=== PATIENT | female | born 1985 | race Caucasian/White ===

== ENCOUNTER 2024-01-13 07:16 | Emergency (ER) | payer OTHER ==
[2024-01-13] MEDS ORDERED: Ketorolac Tromethamine 30 MG (1 mL) VIAL ONE (07:48)
[2024-01-13] MEDS ORDERED: Ondansetron PF 4 MG/2 ML Vial ONE (07:48)
[2024-01-13 07:52] LABS: #Basophils 0.04 10x3/uL (0.0-0.2); %Basophils 0.3 % (0.0-1.0); %Eosinophils 0.7 % (0.0-10.0); %Lymphocytes 18.4 % (21.0-51.0); %Monocytes 6.6 % (0.0-10.0); %Neutrophils 73.7 % (42.0-75.0); Hematocrit 41.4 % (36.0-47.0); Hemoglobin 14.2 g/dL (12.0-16.0); Mean Corpuscular HGB CONC 34.3 g/dL (32.0-36.0); Mean Corpuscular Hemoglobin 29.5 pg (27.0-31.0); Mean Corpuscular Volume 85.9 fL (78.0-98.0); Platelet Count 331 10x3/uL (130-400); RBC Distribution Width 13.1 % (11.5-14.5); Red Blood Cell (RBC) Count 4.82 mill/uL (4.20-5.40)
[2024-01-13 07:57] LABS: Bilirubin Negative (Negative); Blood, Urine Small (Negative); Glucose, Urine (Dipstick) Negative (Negative); Ketone, Urine Negative (Negative); Leukocyte Negative (Negative); Nitrite Negative (Negative); Protein, Urine (Dipstick) Negative (Neg-Trace); Urobilinogen 0.2 mg/dL (Less than 2)
[2024-01-13 08:03] LABS: Clarity Clear (Clear)
[2024-01-13 08:05] LABS: CAUTI Indications for Culture Dysuria,urgency,freq; RBC/HPF 0-3 HPF (0-3); WBC/HPF 0-3 HPF (0-3)
[2024-01-13 08:07] LABS: Pregnancy Test - Urine (BHCG) Negative (Negative); Pregu Control Background? CLEAR/WHITE (CLR/WHITE); Pregu Control Bar Appear? YES (CONTROL BAR); Specific Gravity 1.022 (1.002-1.036); Specific Gravity, Urine 1.022 (1.002-1.036)
[2024-01-13 08:08] LABS: ALT (SGPT) 39 U/L (8-55); AST (SGOT) 29 U/L (5-34); Albumin 3.8 g/dL (3.5-5.0); Alkaline Phosphatase 80 U/L (40-110); Anion Gap 15 mmol/L (10-20); BUN (Urea Nitrogen) 11 mg/dL (7.0-18.7); Bacteria/HPF Rare-Few HPF (None Seen); Bilirubin, Total 0.6 mg/dL (0.2-1.2); Calc. Creatinine Clearance 0 mL/min (70-130); Calcium 9.7 mg/dL (7.8-10.44); Carbon Dioxide 20 mmol/L (22-29); Chloride 108 mmol/L (98-107); Estimated GFR 113; Globulin 3.9 g/dL (2.4-3.5); Glucose 133 mg/dL (70-105); Potassium 3.9 mmol/L (3.5-5.1); Protein, Total 7.7 g/dL (6.0-8.3); Sodium 139 mmol/L (136-145)
[2024-01-13 08:09] LABS: Urine Culture Reflex No No
[2024-01-13] MEDS ORDERED: Morphine 2 MG/ML VIAL ONE (08:57)
[2024-01-13] MEDS ORDERED: Iopamidol-370 76% 500 ML MDV (1 ML CHARGE) ONE (11:13)
[2024-01-13] MEDS ORDERED: traMADol HCl 50 MG TAB ONE (12:06)
== END 2024-01-13 12:20 | disposition home or self-care (01) ==
LOC: ERS 07:16
DX: K57.32 Diverticulitis of large intestine without perforation or abscess without bleeding (principal); R22.1 Localized swelling, mass and lump, neck; K21.9 Gastro-esophageal reflux disease without esophagitis; Z79.899 Other long term (current) drug therapy
CPT/HCPCS: 74177; 76856; 80053; 81001; 81025; 85025; 96374; 96375; J1885; J2272; J2405; Q9967

== ENCOUNTER 2024-01-14 01:19 | Inpatient (IN) | payer OTHER ==
[2024-01-14 03:07] LABS: Troponin I Less than 0.010 ng/mL (< 0.028)
[2024-01-14] MEDS ORDERED: Ketorolac Tromethamine 30 MG (1 mL) VIAL ONE ×2 (03:14→09:18)
[2024-01-14] MEDS ORDERED: Ondansetron PF 4 MG/2 ML Vial ONE (03:17)
[2024-01-14 03:45] LABS: Bilirubin Negative (Negative); Blood, Urine Trace (Negative); CAUTI Indications for Culture Pelvic or flank pain; Clarity Clear (Clear); Glucose, Urine (Dipstick) Normal (Negative); Ketone, Urine Trace mg/dL (Negative); Leukocyte Negative Leu/uL (Negative); Nitrite Negative (Negative); Protein, Urine (Dipstick) Negative (Neg-Trace); RBC/HPF 0-3 HPF (0-3); Specific Gravity, Urine 1.008 (1.002-1.036); Squamous Epithelial None Seen HPF (0-3); Urobilinogen Normal mg/dL (Less than 2); WBC/HPF 0-3 HPF (0-3)
[2024-01-14 03:46] LABS: Bacteria/HPF Rare-Few HPF (None Seen)
[2024-01-14 03:47] LABS: Urine Culture Reflex No No
[2024-01-14 04:25] LABS: #Basophils 0.06 10x3/uL (0.0-0.2); %Basophils 0.4 % (0.0-1.0); %Eosinophils 0.2 % (0.0-10.0); %Monocytes 6.3 % (0.0-10.0); %Neutrophils 79.7 % (42.0-75.0); Hematocrit 38.8 % (36.0-47.0); Mean Corpuscular HGB CONC 33.5 g/dL (32.0-36.0); Mean Corpuscular Hemoglobin 29.7 pg (27.0-31.0); Mean Corpuscular Volume 88.6 fL (78.0-98.0); Mean Platelet Volume 10.5 fL (7.4-10.4); Platelet Count 291 10x3/uL (130-400); RBC Distribution Width 13.2 % (11.5-14.5); Red Blood Cell (RBC) Count 4.38 mill/uL (4.20-5.40)
[2024-01-14 04:31] LABS: BHCG - Serum Negative (NEGATIVE); Pregs Control Background? CLEAR/WHITE (CLR/WHITE); Pregs Control Bar Appear? YES (CONTROL BAR)
[2024-01-14 04:44] LABS: ALT (SGPT) 48 U/L (8-55); AST (SGOT) 32 U/L (5-34); Albumin 3.5 g/dL (3.5-5.0); Alkaline Phosphatase 75 U/L (40-110); Anion Gap 17 mmol/L (10-20); BUN (Urea Nitrogen) 7 mg/dL (7.0-18.7); Bilirubin, Total 0.9 mg/dL (0.2-1.2); Calc. Creatinine Clearance 0 mL/min (70-130); Calcium 9.3 mg/dL (7.8-10.44); Carbon Dioxide 17 mmol/L (22-29); Chloride 106 mmol/L (98-107); Estimated GFR 111; Globulin 3.7 g/dL (2.4-3.5); Glucose 126 mg/dL (70-105); Lipase 10 U/L (8-78); Magnesium 1.7 mg/dL (1.6-2.6); Potassium 3.6 mmol/L (3.5-5.1); Protein, Total 7.2 g/dL (6.0-8.3); Sodium 136 mmol/L (136-145)
[2024-01-14] MEDS ORDERED: metroNIDAZOLE 500 MG (100 mL) BAG ONE (06:00)
[2024-01-14] MEDS ORDERED: Ciprofloxacin Lactate D5W 400 mg (200 mL) BAG ONE ×2 (06:01→09:18)
[2024-01-14] MEDS ORDERED: Iopamidol 370 76% 100 ML VIAL ONE (09:00)
[2024-01-14] MEDS ORDERED: Sodium Chloride 0.9% 1,000 ML IV SCH (10:00)
[2024-01-14 12:05] VITALS: BMI 35.6
[2024-01-14] MEDS ORDERED: Ondansetron ODT 4 MG TAB PO PRN (12:12)
[2024-01-14] MEDS: Lactated Ringer's 1,000 ML IV SCH (12:43)
[2024-01-14] MEDS: metroNIDAZOLE 500 MG in Premix 1 BAG IVPB SCH (14:33)
[2024-01-14] MEDS: Ondansetron PF 4 MG/2 ML Vial IVP PRN (14:36)
[2024-01-14] MEDS: HYDROcodone/Acetaminophen 5/325 mg Tablet PO PRN (17:15)
[2024-01-14] MEDS: Ciprofloxacin Lactate/D5W 400 MG in Premix 1 BAG IVPB SCH (20:47)
[2024-01-14] MEDS: Famotidine/PF 20 mg/2ml Vial SLOW IVP SCH (20:48)
[2024-01-14] MEDS: diphenhydrAMINE 25 MG CAP PO SCH (22:17)
[2024-01-15 08:06] LABS: #Basophils 0.04 10x3/uL (0.0-0.2); %Basophils 0.5 % (0.0-1.0); %Eosinophils 3.2 % (0.0-10.0); %Lymphocytes 32.8 % (21.0-51.0); %Monocytes 7.6 % (0.0-10.0); %Neutrophils 55.6 % (42.0-75.0); Hematocrit 35.3 % (36.0-47.0); Hemoglobin 11.7 g/dL (12.0-16.0); Mean Corpuscular HGB CONC 33.1 g/dL (32.0-36.0); Mean Corpuscular Hemoglobin 29.5 pg (27.0-31.0); Mean Corpuscular Volume 89.1 fL (78.0-98.0); Mean Platelet Volume 10.4 fL (7.4-10.4); Platelet Count 250 10x3/uL (130-400); RBC Distribution Width 13.2 % (11.5-14.5); Red Blood Cell (RBC) Count 3.96 mill/uL (4.20-5.40)
[2024-01-15] MEDS: Enoxaparin 40 MG (0.4 mL) SYRINGE SC SCH (08:06)
[2024-01-15 08:07] LABS: Anion Gap 14 mmol/L (10-20); BUN (Urea Nitrogen) 4 mg/dL (7.0-18.7); Calc. Creatinine Clearance 181 mL/min (70-130); Calcium 8.8 mg/dL (7.8-10.44); Carbon Dioxide 21 mmol/L (22-29); Chloride 109 mmol/L (98-107); Estimated GFR 116; Glucose 97 mg/dL (70-105); Potassium 3.6 mmol/L (3.5-5.1); Sodium 140 mmol/L (136-145)
[2024-01-15 12:12] LABS: Bacteria/HPF None Seen HPF (None Seen); Bilirubin Negative (Negative); Blood, Urine Negative (Negative); CAUTI Indications for Culture Pelvic or flank pain; Clarity Clear (Clear); Glucose, Urine (Dipstick) Normal (Negative); Ketone, Urine Negative (Negative); Leukocyte Negative Leu/uL (Negative); Nitrite Negative (Negative); Protein, Urine (Dipstick) Negative (Neg-Trace); RBC/HPF 0-3 HPF (0-3); Specific Gravity, Urine 1.006 (1.002-1.036); Squamous Epithelial None Seen HPF (0-3); Urobilinogen Normal mg/dL (Less than 2); WBC/HPF None Seen HPF (0-3); pH, Urine 7.5 (5.0-9.0)
[2024-01-15 12:14] LABS: Urine Culture Reflex No No
[2024-01-15] MEDS: Acetaminophen 325 MG TAB PO PRN (21:13)
[2024-01-15] MEDS: Sulfameth/Trimethoprim DS 800-160mg TAB PO SCH (21:13)
[2024-01-15] MEDS: metroNIDAZOLE 500 MG TAB PO SCH (21:13)
[2024-01-15] MEDS: Ondansetron PF 4 MG/2 ML Vial IVP PRN (23:34)
[2024-01-16] MEDS: Sertraline 25 MG TAB PO SCH ×3 (00:18→19:49)
[2024-01-16] MEDS: Promethazine HCl 12.5 MG in Sodium Chloride 0.9% 50 ML IVPB SCH (04:16)
[2024-01-16] MEDS ORDERED: Pantoprazole DR 40 MG TAB PO SCH (09:00)
[2024-01-16] MEDS: Pantoprazole DR 40 MG TAB PO SCH (10:33)
[2024-01-16] MEDS: Ketorolac Tromethamine 30 MG (1 mL) VIAL IVP PRN (13:04)
[2024-01-16] MEDS: Ondansetron PF 4 MG/2 ML Vial IVP PRN (16:25)
[2024-01-16] MEDS: Calcium Carbonate 500 MG ChewTAB PO SCH (19:50)
[2024-01-17 12:45] VITALS: BP 100/60; TEMP 98.4
== END 2024-01-17 12:59 | disposition home or self-care (01) | DRG 872 ==
LOC: ERS 01:19 → ERHOLD 09:43 → T4-A 11:57
PROVIDERS: ADMIT Family Medicine; ATTEND Internal Medicine
DX: A41.9 Sepsis, unspecified organism (principal); K57.32 Diverticulitis of large intestine without perforation or abscess without bleeding; F41.9 Anxiety disorder, unspecified; K21.9 Gastro-esophageal reflux disease without esophagitis; N88.8 Other specified noninflammatory disorders of cervix uteri; Z88.0 Allergy status to penicillin; Z79.899 Other long term (current) drug therapy; R22.1 Localized swelling, mass and lump, neck
CPT/HCPCS: 36415; 74177; 76856; 80048; 80053; 81001; 81025; 83605; 83690; 83735; 84145; 84484; 84703; 85025; 93005; 96374; 96375; 96376; J0744; J1580; J1650; J1885; J2272; J2405; J2550; J3490; J7120; Q9967; S0028